=== PATIENT | male | born 1965 | race Caucasian/White ===

== ENCOUNTER 2018-11-10 02:38 | Emergency (ER) | payer OTHER ==
[~2018-11-10] VITALS: Ht 180.3 cm; Wt 136.1 kg
[~2018-11-10 02:38] MED LIST: ACT15; EFFEXOR-XR75 MG PO; KLONOPIN1 MG; LIPITOR40 MG
[2018-11-10 02:45] VITALS: Ht 180.3 cm; Wt 136.1 kg
[2018-11-10 03:45] VITALS: BP 132/72
== END 2018-11-10 03:45 | disposition home or self-care (01) ==
LOC: ED 02:38
DX: S63.502A Unspecified sprain of left wrist, initial encounter (principal); I10 Essential (primary) hypertension; E11.9 Type 2 diabetes mellitus without complications; Z98.890 Other specified postprocedural states; Z88.0 Allergy status to penicillin; Z88.6 Allergy status to analgesic agent; Y04.0XXA Assault by unarmed brawl or fight, initial encounter; Y93.89 Activity, other specified; Y92.89 Other specified places as the place of occurrence of the external cause; Y99.8 Other external cause status
CPT/HCPCS: Q0092

== ENCOUNTER 2019-09-10 19:51 | Emergency (ER) | payer OTHER ==
[~2019-09-10] VITALS: Ht 182.9 cm; Wt 123.8 kg
[2019-09-10 20:00] VITALS: Ht 182.9 cm; Wt 123.8 kg
[2019-09-10 22:22] VITALS: BP 150/79
== END 2019-09-10 22:22 | disposition home or self-care (01) ==
LOC: ED 19:51
DX: S00.03XA Contusion of scalp, initial encounter (principal); M54.6 Pain in thoracic spine; I10 Essential (primary) hypertension; E11.9 Type 2 diabetes mellitus without complications; Z88.6 Allergy status to analgesic agent; W18.39XA Other fall on same level, initial encounter; Y93.89 Activity, other specified; Y92.89 Other specified places as the place of occurrence of the external cause; Y99.8 Other external cause status

== ENCOUNTER 2019-11-10 23:26 | Emergency (ER) | payer OTHER ==
[~2019-11-10] VITALS: Ht 182.9 cm; Wt 121.1 kg
[2019-11-10 23:29] VITALS: Ht 182.9 cm; Wt 121.1 kg
[2019-11-11 01:25] LABS: BASOPHIL % 0.2 % (0-2); PLATELET COUNT 250 x10^3mcL (130-400); RED CELL DISTRIBUTION WIDTH 12.1 % (11.5-14.5)
[2019-11-11 01:31] LABS: CALCIUM 8.9 mg/dL (8.5-10.1); CHLORIDE SERUM 100 mmol/L (98-107); CREATININE SERUM 1.1 mg/dL (0.7-1.3); GFR1 > 60 mL/min; GLUCOSE SERUM 360 mg/dL (74-106); POTASSIUM SERUM 3.8 mmol/L (3.5-5.1); SODIUM SERUM 138 mmol/L (136-145)
[2019-11-11 01:35] LABS: ALBUMIN 3.6 g/dL (3.4-5.0); ALKALINE PHOSPHATASE 110 U/L (46-116); ALT/SGPT 61 U/L (16-63); AMYLASE 96 U/L (25-115); AST/SGOT 30 U/L (15-37); BILIRUBIN TOTAL 0.58 mg/dL (0.20-1.00); LIPASE 276 IU/L (73-393); TOTAL PROTEIN, SERUM 7.7 g/dL (6.4-8.2)
[2019-11-11 03:36] VITALS: BP 145/80
== END 2019-11-11 03:36 | disposition home or self-care (01) ==
LOC: ED 23:26
PROVIDERS: Emergency Medicine
DX: K52.9 Noninfective gastroenteritis and colitis, unspecified (principal); I10 Essential (primary) hypertension; E11.9 Type 2 diabetes mellitus without complications; Z88.6 Allergy status to analgesic agent
CPT/HCPCS: J2405; J2765; J7030; Q0162

== ENCOUNTER 2019-12-14 08:52 | Emergency (ER) | payer OTHER, MEDICAID ==
[~2019-12-14] VITALS: Ht 182.9 cm; Wt 120.2 kg
[2019-12-14 09:13] VITALS: BP 148/95; Ht 182.9 cm; Wt 120.2 kg
== END 2019-12-14 11:03 | disposition home or self-care (01) ==
LOC: ED 08:52
DX: Z53.21 Procedure and treatment not carried out due to patient leaving prior to being seen by health care provider (principal)
CPT/HCPCS: Q0092

== ENCOUNTER 2019-12-14 11:48 | Emergency (ER) | payer OTHER, MEDICAID ==
[~2019-12-14] VITALS: Ht 182.9 cm; Wt 120.2 kg
[2019-12-14 12:16] VITALS: Ht 182.9 cm; Wt 120.2 kg
[2019-12-14 15:00] VITALS: BP 126/85
== END 2019-12-14 15:00 | disposition home or self-care (01) ==
LOC: ED 11:48
DX: M77.9 Enthesopathy, unspecified (principal); I10 Essential (primary) hypertension; E11.9 Type 2 diabetes mellitus without complications; G40.909 Epilepsy, unspecified, not intractable, without status epilepticus; G24.8 Other dystonia; E66.9 Obesity, unspecified; Z68.35 Body mass index [BMI] 35.0-35.9, adult; Z88.6 Allergy status to analgesic agent
CPT/HCPCS: Q0092

== ENCOUNTER 2020-01-15 21:10 | Emergency (ER) | payer MEDICARE, MEDICAID ==
[~2020-01-15] VITALS: Ht 182.9 cm; Wt 115.2 kg
[2020-01-15 21:21] VITALS: Ht 182.9 cm; Wt 115.2 kg
[2020-01-15 22:06] LABS: BASOPHIL % 0.2 % (0-2); PLATELET COUNT 285 x10^3mcL (130-400); RED CELL DISTRIBUTION WIDTH 13.2 % (11.5-14.5)
[2020-01-15 22:16] LABS: CALCIUM 9.5 mg/dL (8.5-10.1); CARBON DIOXIDE 23.4 mmol/L (21-32); CHLORIDE SERUM 95 mmol/L (98-107); CREATININE SERUM 1.1 mg/dL (0.7-1.3); GFR1 > 60 mL/min; GLUCOSE SERUM 395 mg/dL (74-106); POTASSIUM SERUM 3.8 mmol/L (3.5-5.1); SODIUM SERUM 130 mmol/L (136-145)
[2020-01-15 22:20] LABS: ALBUMIN 3.9 g/dL (3.4-5.0); ALKALINE PHOSPHATASE 107 U/L (46-116); ALT/SGPT 57 U/L (16-63); AST/SGOT 22 U/L (15-37); BILIRUBIN TOTAL 1.36 mg/dL (0.20-1.00); LIPASE 181 IU/L (73-393); TOTAL PROTEIN, SERUM 7.9 g/dL (6.4-8.2)
[2020-01-15 23:25] VITALS: BP 166/95
== END 2020-01-15 23:25 | disposition home or self-care (01) ==
LOC: ED 21:10
PROVIDERS: Emergency Medicine
DX: R10.84 Generalized abdominal pain (principal); E11.65 Type 2 diabetes mellitus with hyperglycemia; R11.2 Nausea with vomiting, unspecified; K59.00 Constipation, unspecified; Z88.6 Allergy status to analgesic agent
CPT/HCPCS: 36415

== ENCOUNTER 2020-02-28 16:24 | Emergency (ER) | payer MEDICARE, MEDICAID ==
[~2020-02-28] VITALS: Ht 182.9 cm; Wt 116.6 kg
[2020-02-28 16:27] VITALS: Ht 182.9 cm; Wt 116.6 kg
[2020-02-28 17:26] VITALS: BP 125/86
== END 2020-02-28 17:26 | disposition home or self-care (01) ==
LOC: ED 16:24
DX: M25.521 Pain in right elbow (principal); I10 Essential (primary) hypertension; E11.9 Type 2 diabetes mellitus without complications; Z88.6 Allergy status to analgesic agent
CPT/HCPCS: J2270; Q0092